=== PATIENT | male | born 1995 | race American Indian/Alaskan Native ===

== ENCOUNTER 2016-06-29 13:15 | Emergency (ER) | payer MEDICAID ==
[2016-06-29 13:37] VITALS: BP 136/78
[2016-06-29 14:00] LABS: Basophils % (Auto) 0.4 % (0.0-1.8); Eosinophils % (Auto) 4.7 % (0.0-4.3); Hematocrit 39.8 % (35.5-45.6); Hemoglobin 13.1 gm/dl (11.8-15.2); Mean Corpuscular HGB Conc 33 % (32-34); Mean Corpuscular Hemoglobin 27 pg (28-32); Mean Corpuscular Volume 83 fl (84-94); Platelet Count 214 K/mm3 (140-440); Red Blood Count 4.78 M/mm3 (3.65-5.03); White Blood Count 5.1 K/mm3 (4.5-11.0)
[2016-06-29 14:16] LABS: Anion Gap 17 mmol/L; BUN/Creatinine Ratio 5.71; Blood Urea Nitrogen 4 mg/dL (9-20); Calcium 9.1 mg/dL (8.4-10.2); Carbon Dioxide 28 mmol/L (22-30); Chloride 101.1 mmol/L (98-107); Glucose 111 mg/dL (75-100); Potassium 3.6 mmol/L (3.6-5.0); Sodium 142 mmol/L (137-145)
[2016-06-29 15:55] LABS: Urine Drugs of Abuse Note Disclamer
[2016-06-29 16:05] LABS: Bilirubin,Urine NEG (Negative); Blood,Urine NEG (Negative); Ketones,Urine NEG (Negative); Leukocyte Esterase,Urine NEG (Negative); Nitrite,Urine NEG (Negative); Protein,Urine <15 mg/dL mg/dL (Negative); Urobilinogen,Urine < 2.0 mg/dL (<2.0); WBC,Urine < 1.0 /HPF (0.0-6.0)
--- NOTE | 2016-06-29 19:40 | Emergency Department Report ---
HPI - General Chief Complaint: Psych Time Seen by Provider: 06/29/16 15:26 - HPI HPI: Chief complaint: Explosive behavior HPI: Patient is a 21-year-old male with a history of ADHD, moderate intellectual disabilities, intermittent explosive disorder, unspecified psychosis and unspecified episodic mood disorder who had an explosive outburst today. Patient was throwing things but did not assault anyone. Patient has had these type of behavior in the past but is currently calm and cooperative. Patient has been seeing a psychiatrist and also has a history of seizure disorder. Patient is currently not homicidal or suicidal and very cooperative. Mode of arrival: [private car] Source: [Patient] and [family member] Began: Occurred prior to admission Duration: Intermittent Context: See above Quality: No pain Severity: 0 out of 10 Improved with: Nothing Worsened with: Nothing Associated signs and symptoms: Unable to assess further ED Past Medical Hx - Past Medical History Hx Seizures: Yes Hx Psychiatric Treatment: Yes (Sees Dr Alanis does not know diagnosis) Additional medical history: ADHD / MODERATE INTELLECTUAL DISABILITIES/ INTERMITTENT EXPLOSIVE DISORDER/ UNSPECIFIED PSYCHOSIS / UNSPECIFIED EPISODIC MOOD DISORDER - Surgical History Past Surgical History?: No Additional Surgical History: vagus nerve stimulator (has been taken out) - Social History Smoking Status: Never Smoker Substance Use Type: None - Medications Home Medications: Home Medications Medication Instructions Recorded Confirmed Last Taken Type Phenytoin [Dilantin] 100 mg PO HS 06/25/14 06/29/16 06/24/14 History Phenytoin [Dilantin] 200 mg PO DAILY 06/25/14 06/29/16 06/25/14 History lamoTRIgine [LaMICtal] 50 mg PO 4XD 06/25/14 06/29/16 06/25/14 History Chlorpromazine HCl [chlorproMAZINE] 100 mg PO TID 06/29/16 06/29/16 Unknown History Clonidine HCl [Kapvay] 0.1 mg PO BID 06/29/16 06/29/16 Unknown History clonazePAM [ Klonopin] 0.5 mg PO BID PRN 06/29/16 06/29/16 Unknown History ED Review of Systems ROS: Stated complaint: MH EVAL Other details as noted in HPI Comment: Unobtainable due to pts medical conditions (developmentally delayed) Physical Exam - Physical Exam Vital Signs: Vital Signs 06/29/16 06/29/16 13:32 17:07 Temperature 98.4 F Pulse Rate 107 H Respiratory 20 24 Rate Blood Pressure 136/78 O2 Sat by Pulse 100 95 Oximetry Physical Exam: GENERAL: The patient is well-developed well-nourished . HEENT: Normocephalic. Atraumatic. Extraocular motions are intact. Patient has moist mucous membranes. NECK: Supple. No meningitic signs are noted. There is no adenopathy noted. CHEST/LUNGS: Clear to auscultation. There is no respiratory distress noted. HEART/CARDIOVASCULAR: Regular. There is no tachycardia. There is no gallop rub or murmur. ABDOMEN: Abdomen is soft, nontender. Patient has normal bowel sounds. There is no abdominal distention. SKIN: There is no rash. There is no edema. There is no diaphoresis. NEURO: The patient is awake, alert, The patient is cooperative. The patient has no focal neurologic deficits. MUSCULOSKELETAL: There is no tenderness or deformity. There is no limitation range of motion. There is no evidence of acute injury. ED Course Vital Signs 06/29/16 06/29/16 13:32 17:07 Temperature 98.4 F Pulse Rate 107 H Respiratory 20 24 Rate Blood Pressure 136/78 O2 Sat by Pulse 100 95 Oximetry - Reevaluation(s) Reevaluation #1: 06/29/16 19:43 Patient evaluated by mental health brewery worker who will recommend outpatient follow-up as well as in-home follow-up for education. ED Medical Decision Making - Lab Data Result diagrams: 06/29/16 13:46 06/29/16 13:46 Laboratory Tests 06/29/16 06/29/16 13:46 15:59 Phenytoin 16.3 Plasma/Serum Alcohol < 0.01 UDS negative Critical care attestation.: If time is entered above; I have spent that time in minutes in the direct care of this critically ill patient, excluding procedure time. ED Disposition Clinical Impression: Behavior disturbance, Mood disorder Disposition: DISCHARGED TO HOME OR SELFCARE Is pt being admited?: No Does the pt Need Aspirin: No Condition: Stable Additional Instructions: Follow-up with resources given to by the mental health brewery worker lex. Time of Disposition: 19:35
== END 2016-06-29 19:40 | disposition home or self-care (01) ==
LOC: ED 13:15 → EEVIPCON 13:15 → ED 19:40
DX: F91.8 Other conduct disorders (principal); F39 Unspecified mood [affective] disorder; R56.9 Unspecified convulsions; F90.9 Attention-deficit hyperactivity disorder, unspecified type; F29 Unspecified psychosis not due to a substance or known physiological condition
CPT/HCPCS: 36415; 80048; 80185; 81001; 85025; 99284; G0479; G0480; 80307; 80320

== ENCOUNTER 2016-07-10 22:55 | Emergency (ER) | payer MEDICAID ==
--- NOTE | 2016-07-10 23:36 | Emergency Department Report ---
ED Psych HPI - General Chief Complaint: Psych Stated Complaint: MH EVAL Time Seen by Provider: 07/10/16 23:24 Source: patient, police Mode of arrival: Ambulatory Limitations: No Limitations - History of Present Illness Initial Comments: 21-year-old male presents to the emergency department via EMS from mental health evaluation. Per report, the patient became agitated and began destroying property at his home. Patient has a history of similar patient denies suicidal or homicidal ideation. He denies visual or auditory hallucinations. There are no other complaints. -: Sudden, This evening Associated Psychiatric Symptoms: none History of same: Yes Quality: resolved prior to arrival Improves With: none Worsens With: none Associated Symptoms: denies other symptoms - Related Data Home Medications Medication Instructions Recorded Confirmed Last Taken Phenytoin [Dilantin] 100 mg PO HS 06/25/14 06/29/16 06/24/14 Phenytoin [Dilantin] 200 mg PO DAILY 06/25/14 06/29/16 06/25/14 lamoTRIgine [LaMICtal] 50 mg PO 4XD 06/25/14 06/29/16 06/25/14 Chlorpromazine HCl [chlorproMAZINE] 100 mg PO TID 06/29/16 06/29/16 Unknown Clonidine HCl [Kapvay] 0.1 mg PO BID 06/29/16 06/29/16 Unknown clonazePAM [ Klonopin] 0.5 mg PO BID PRN 06/29/16 06/29/16 Unknown Allergies Allergy/AdvReac Type Severity Reaction Status Date / Time No Known Allergies Allergy Verified 06/13/16 15:51 ED Review of Systems ROS: Stated complaint: MH EVAL Other details as noted in HPI Comment: All other systems reviewed and negative Psychiatric: as per HPI. denies: auditory hallucinations, visual hallucinations , homicidal thoughts, suicidal thoughts ED Past Medical Hx - Past Medical History Previous Medical History?: Yes Hx Seizures: Yes Hx Psychiatric Treatment: Yes Additional medical history: ADHD / MODERATE INTELLECTUAL DISABILITIES/ INTERMITTENT EXPLOSIVE DISORDER/ UNSPECIFIED PSYCHOSIS / UNSPECIFIED EPISODIC MOOD DISORDER - Surgical History Past Surgical History?: Yes Additional Surgical History: vagus nerve stimulator (has been taken out) - Family History Family history: no significant - Social History Smoking Status: Current Every Day Smoker Substance Use Type: Alcohol - Medications Home Medications: Home Medications Medication Instructions Recorded Confirmed Last Taken Type Phenytoin [Dilantin] 100 mg PO HS 06/25/14 06/29/16 06/24/14 History Phenytoin [Dilantin] 200 mg PO DAILY 06/25/14 06/29/16 06/25/14 History lamoTRIgine [LaMICtal] 50 mg PO 4XD 06/25/14 06/29/16 06/25/14 History Chlorpromazine HCl [chlorproMAZINE] 100 mg PO TID 06/29/16 06/29/16 Unknown History Clonidine HCl [Kapvay] 0.1 mg PO BID 06/29/16 06/29/16 Unknown History clonazePAM [ Klonopin] 0.5 mg PO BID PRN 06/29/16 06/29/16 Unknown History ED Physical Exam - General Limitations: No Limitations General appearance: alert, in no apparent distress - Head Head exam: Present: atraumatic, normocephalic - Eye Eye exam: Present: normal appearance, PERRL, EOMI - ENT ENT exam: Present: normal exam, normal orophraynx, mucous membranes moist - Neck Neck exam: Present: normal inspection, full ROM. Absent: tenderness - Respiratory Respiratory exam: Present: normal lung sounds bilaterally. Absent: respiratory distress - Cardiovascular Cardiovascular Exam: Present: regular rate, normal rhythm, normal heart sounds - GI/Abdominal GI/Abdominal exam: Present: soft, normal bowel sounds. Absent: distended, tenderness - Extremities Exam Extremities exam: Present: normal inspection, full ROM. Absent: tenderness - Back Exam Back exam: Present: normal inspection, full ROM. Absent: tenderness - Neurological Exam Neurological exam: Present: alert, oriented X3. Absent: motor sensory deficit - Psychiatric Psychiatric exam: Present: normal affect, normal mood. Absent: homicidal ideation, suicidal ideation - Skin Skin exam: Present: warm, dry, intact ED Course Vital Signs 07/10/16 23:17 Temperature 98.2 F Pulse Rate 105 H Respiratory 20 Rate Blood Pressure 130/87 O2 Sat by Pulse 99 Oximetry - Reevaluation(s) Reevaluation #1: 07/11/16 01:46 Lab results reviewed. Patient has been medically cleared. Form 1013 has been signed and placed on the chart. Patient has been evaluated by mental health and he is currently awaiting placement. ED Medical Decision Making - Lab Data Result diagrams: 07/10/16 23:39 07/10/16 23:39 - Differential Diagnosis mood disorder, behavior disorder, acute psychosis Critical care attestation.: If time is entered above; I have spent that time in minutes in the direct care of this critically ill patient, excluding procedure time. ED Disposition Clinical Impression: Mood disorder, Acute psychosis Disposition: DC/TX PSY HOSP/PSY UNIT Is pt being admited?: No Condition: Stable Time of Disposition: 01:47
[2016-07-11 00:03] LABS: Basophils % (Auto) 0.3 % (0.0-1.8); Eosinophils % (Auto) 8.1 % (0.0-4.3); Hematocrit 36.5 % (35.5-45.6); Hemoglobin 12.4 gm/dl (11.8-15.2); Mean Corpuscular HGB Conc 34 % (32-34); Mean Corpuscular Hemoglobin 28 pg (28-32); Mean Corpuscular Volume 84 fl (84-94); Platelet Count 241 K/mm3 (140-440); Red Blood Count 4.37 M/mm3 (3.65-5.03); Red Cell Distribution Width 15.3 % (13.2-15.2); White Blood Count 6.7 K/mm3 (4.5-11.0)
[2016-07-11 00:09] LABS: BUN/Creatinine Ratio 4.28; Blood Urea Nitrogen 3 mg/dL (9-20); Carbon Dioxide 29 mmol/L (22-30); Chloride 103.2 mmol/L (98-107); Glucose 97 mg/dL (75-100); Potassium 3.2 mmol/L (3.6-5.0); Sodium 144 mmol/L (137-145)
[2016-07-11 00:17] LABS: Anion Gap 15 mmol/L
[2016-07-11 01:11] LABS: Urine Drugs of Abuse Note Disclamer
[2016-07-11 01:24] LABS: Bilirubin,Urine NEG (Negative); Blood,Urine NEG (Negative); Ketones,Urine NEG (Negative); Leukocyte Esterase,Urine NEG (Negative); Nitrite,Urine NEG (Negative); Protein,Urine <15 mg/dL mg/dL (Negative); Urobilinogen,Urine < 2.0 mg/dL (<2.0)
[2016-07-11] MEDS ORDERED: NACL 0.9% 500 ML IR ONE ×2 (03:25→03:27)
[2016-07-11] MEDS ORDERED: THERMAZENE 50 GRAM TP ONE (03:26)
[2016-07-11] MEDS ORDERED: XANAX PO ONE (13:08)
[2016-07-11 19:37] VITALS: BP 136/82
== END 2016-07-11 19:40 | disposition home or self-care (01) ==
LOC: ED 22:55 → EEVIPCON 22:55 → ED 07-11 19:40
DX: F39 Unspecified mood [affective] disorder (principal); F17.200 Nicotine dependence, unspecified, uncomplicated
CPT/HCPCS: 36415; 80048; 80307; 81001; 85025; 99285; G0480; 80320; 99284

== ENCOUNTER 2016-11-14 16:10 | Emergency (ER) | payer MEDICAID ==
[2016-11-14 17:46] LABS: Basophils % (Auto) 0.6 % (0.0-1.8); Hematocrit 41.1 % (35.5-45.6); Hemoglobin 13.6 gm/dl (11.8-15.2); Mean Corpuscular HGB Conc 33 % (32-34); Mean Corpuscular Hemoglobin 29 pg (28-32); Mean Corpuscular Volume 86 fl (84-94); Platelet Count 241 K/mm3 (140-440); Red Blood Count 4.77 M/mm3 (3.65-5.03); Red Cell Distribution Width 14.9 % (13.2-15.2); White Blood Count 8.2 K/mm3 (4.5-11.0)
[2016-11-14 17:58] LABS: Anion Gap 16 mmol/L; Blood Urea Nitrogen 6 mg/dL (9-20); Calcium 9.2 mg/dL (8.4-10.2); Carbon Dioxide 29 mmol/L (22-30); Chloride 99.9 mmol/L (98-107); Glucose 70 mg/dL (75-100); Potassium 4.4 mmol/L (3.6-5.0); Sodium 140 mmol/L (137-145)
[2016-11-14] MEDS ORDERED: ATIVAN IM PRN (19:51)
--- NOTE | 2016-11-14 19:52 | Emergency Department Report ---
ED General Adult HPI - General Chief complaint: Psych Stated complaint: MH EVAL Time Seen by Provider: 11/14/16 19:40 Source: patient, RN notes reviewed, old records reviewed Mode of arrival: Ambulatory Limitations: Other (patient is a poor historian) - History of Present Illness Initial comments: This is a 21-year-old male. He has a past history of bipolar, schizophrenia, ADHD, retardation, intermittent explosive disorder, unspecified psychosis, unspecified episodic mood disorder. The patient is brought to the hospital for aggressive behavior. No family is available at this point time for clarification. As per triage documentation "mom states he has been acting out this afternoon... Throwing things; poured grease on floor, etc. Mother states spitting on nephew; throwing things at people "Had to call police out to the house 2 this afternoon." Patient has no recollection of this event. He denies headache, neck pain, chest pain, abdominal pain, shortness of breath, irritative and obstructive urinary symptoms. The patient cannot describe exacerbating or relieving factors. -: Gradual Quality: other (per hpi) Consistency: other (per hpi) Improves with: other (per hpi) Worsens with: other (per hpi) Associated Symptoms: denies: chest pain, shortness of breath, syncope, weakness - Related Data Home Medications Medication Instructions Recorded Confirmed Last Taken Phenytoin [Dilantin] 100 mg PO HS 06/25/14 11/14/16 11/14/16 Phenytoin [Dilantin] 200 mg PO DAILY 06/25/14 11/14/16 11/14/16 lamoTRIgine [LaMICtal] 50 mg PO 4XD 06/25/14 11/14/16 11/14/16 Chlorpromazine HCl [chlorproMAZINE] 100 mg PO TID 06/29/16 11/14/16 11/14/16 clonazePAM [ Klonopin] 0.5 mg PO BID PRN 06/29/16 11/14/16 11/14/16 Divalproex [Emma BINGHAM] 250 mg PO QHS 11/14/16 11/14/16 11/13/16 risperiDONE [RisperDAL] 2 mg PO QHS 11/14/16 11/14/16 11/13/16 Allergies Allergy/AdvReac Type Severity Reaction Status Date / Time No Known Allergies Allergy Verified 11/14/16 17:19 ED Review of Systems ROS: Stated complaint: MH EVAL Other details as noted in HPI Constitutional: see HPI Eyes: as per HPI ENT: as per HPI Respiratory: see HPI Cardiovascular: as per HPI Endocrine: see HPI Gastrointestinal: as per HPI Genitourinary: as per HPI Musculoskeletal: as per HPI Skin: as per HPI Neurological: as per HPI Psychiatric: as per HPI. denies: homicidal thoughts, suicidal thoughts Hematological/Lymphatic: as per HPI ED Past Medical Hx - Past Medical History Hx Seizures: Yes Hx Psychiatric Treatment: Yes (Bipolar, Schizophrenia) Additional medical history: ADHD / MODERATE retardation/ INTERMITTENT EXPLOSIVE DISORDER/ UNSPECIFIED PSYCHOSIS / UNSPECIFIED EPISODIC MOOD DISORDER - Surgical History Additional Surgical History: vagus nerve stimulator (has been taken out) - Social History Smoking Status: Never Smoker Substance Use Type: None - Medications Home Medications: Home Medications Medication Instructions Recorded Confirmed Last Taken Type Phenytoin [Dilantin] 100 mg PO HS 06/25/14 11/14/16 11/14/16 History Phenytoin [Dilantin] 200 mg PO DAILY 06/25/14 11/14/16 11/14/16 History lamoTRIgine [LaMICtal] 50 mg PO 4XD 06/25/14 11/14/16 11/14/16 History Chlorpromazine HCl [chlorproMAZINE] 100 mg PO TID 06/29/16 11/14/16 11/14/16 History clonazePAM [ Klonopin] 0.5 mg PO BID PRN 06/29/16 11/14/16 11/14/[address] [DepaKOTE DR] 250 mg PO QHS 11/14/16 11/14/16 11/13/16 History risperiDONE [RisperDAL] 2 mg PO QHS 11/14/16 11/14/16 11/13/16 History ED Physical Exam - General Limitations: Other (the patient is a poor historian, and is very disorganized.) General appearance: alert, in no apparent distress - Head Head exam: Present: atraumatic, normocephalic - Eye Eye exam: Present: normal appearance, EOMI - ENT ENT exam: Present: normal exam, normal orophraynx, mucous membranes moist, normal external ear exam - Neck Neck exam: Present: normal inspection, full ROM. Absent: tenderness, meningismus - Respiratory Respiratory exam: Present: normal lung sounds bilaterally. Absent: respiratory distress, wheezes, rales, rhonchi, stridor, chest wall tenderness, accessory muscle use, decreased breath sounds, prolonged expiratory - Cardiovascular Cardiovascular Exam: Present: regular rate, normal rhythm, normal heart sounds. Absent: bradycardia, tachycardia, irregular rhythm, systolic murmur, diastolic murmur, rubs, gallop - GI/Abdominal GI/Abdominal exam: Present: soft, normal bowel sounds. Absent: distended, tenderness, guarding, rebound, rigid, hyperactive bowel sounds, hypoactive bowel sounds, organomegaly, mass, bruit, pulsatile mass - Rectal Rectal exam: Present: deferred - Extremities Exam Extremities exam: Present: normal inspection, full ROM, normal capillary refill. Absent: tenderness, pedal edema, joint swelling, calf tenderness - Back Exam Back exam: Present: normal inspection, full ROM. Absent: tenderness, CVA tenderness (R), CVA tenderness (L), muscle spasm, paraspinal tenderness, vertebral tenderness - Neurological Exam Neurological exam: Present: alert (patient is alert to name, month, location), oriented X3, other (Extraocular movements intact. Tongue midline. No facial droop. Facial sensation intact to light touch in the V1, V2, V3 distribution bilaterally. 5 and 5 strength in 4 extremities.. Sensation is intact to light touch in 4 extremities.). Absent: motor sensory deficit - Psychiatric Psychiatric exam: Present: flat affect - Skin Skin exam: Present: warm, dry, intact, normal color. Absent: rash ED Course Vital Signs 11/14/16 11/14/16 11/14/16 17:20 19:32 20:10 Temperature 98.1 F 97.8 F Pulse Rate 94 H 96 H Respiratory 18 18 18 Rate Blood Pressure 125/83 Blood Pressure 126/77 [Right] O2 Sat by Pulse 98 97 Oximetry 11/15/16 11/15/16 11/15/16 12:21 12:22 22:00 Temperature 97.5 F L 98.2 F Pulse Rate 87 97 H Respiratory 18 16 18 Rate Blood Pressure Blood Pressure 132/75 125/96 [Right] O2 Sat by Pulse 97 98 98 Oximetry - Reevaluation(s) Reevaluation #1: 05/25/17 20:14 Differential diagnosis: Mood disorder, medical clearance for psychiatric placement, unspecified psychosis Assessment and plan: 21-year-old male with multiple psychiatric issues, appears somewhat disorganized, somewhat hyperactive, not actively homicidal or suicidal. No family is available for collateral at this time. Given disorganized behavior, documentation of the aggressive, patient is placed on a 1013 and is pending psychiatric consult. However, if the psychiatry team is able to obtain collateral information and feels that the patient does not require 1013, I think sending the patient back would be a reasonable plan of care. ED Medical Decision Making - Lab Data Result diagrams: 11/14/16 17:29 11/14/16 17:29 Vital Signs 11/14/16 11/14/16 11/14/16 17:20 19:32 20:10 Temperature 98.1 F 97.8 F Pulse Rate 94 H 96 H Respiratory 18 18 18 Rate Blood Pressure 125/83 Blood Pressure 126/77 [Right] O2 Sat by Pulse 98 97 Oximetry Lab Results 11/14/16 11/14/16 11/14/16 Range/Units 17:29 17:29 17:29 WBC 8.2 (4.5-11.0) K/mm3 RBC 4.77 (3.65-5.03) M/mm3 Hgb 13.6 (11.8-15.2) gm/dl Hct 41.1 (35.5-45.6) % MCV 86 (84-94) fl MCH 29 (28-32) pg MCHC 33 (32-34) % RDW 14.9 (13.2-15.2) % Plt Count 241 (140-440) K/mm3 Lymph % (Auto) 28.8 (13.4-35.0) % [place] % (Auto) 7.5 H (0.0-7.3) % Eos % (Auto) 8.0 H (0.0-4.3) % Baso % (Auto) 0.6 (0.0-1.8) % Lymph # 2.4 (1.2-5.4) K/mm3 [place] # 0.6 (0.0-0.8) K/mm3 Eos # 0.7 H (0.0-0.4) K/mm3 Baso # 0.0 (0.0-0.1) K/mm3 Seg Neutrophils % 55.1 (40.0-70.0) % Seg Neutrophils # 4.5 (1.8-7.7) K/mm3 Sodium 140 (137-145) mmol/L Potassium 4.4 (3.6-5.0) mmol/L Chloride 99.9 (98-107) mmol/L Carbon Dioxide 29 (22-30) mmol/L Anion Gap 16 mmol/L BUN 6 L (9-20) mg/dL Creatinine 0.8 (0.8-1.5) mg/dL Estimated GFR > 60 ml/min BUN/Creatinine Ratio 7.50 % Glucose 70 L (75-100) mg/dL Calcium 9.2 (8.4-10.2) mg/dL Total Creatine Kinase (55-170) units/L Salicylates (2.8-20.0) mg/dL Acetaminophen (10.0-30.0) ug/mL Phenytoin (10.0-20.0) mg/L Plasma/Serum Alcohol < 0.01 (0-0.07) gm% 11/14/16 11/14/16 11/14/16 Range/Units 17:29 17:29 17:29 WBC (4.5-11.0) K/mm3 RBC (3.65-5.03) M/mm3 Hgb (11.8-15.2) gm/dl Hct (35.5-45.6) % MCV (84-94) fl MCH (28-32) pg MCHC (32-34) % RDW (13.2-15.2) % Plt Count (140-440) K/mm3 Lymph % (Auto) (13.4-35.0) % [place] % (Auto) (0.0-7.3) % Eos % (Auto) (0.0-4.3) % Baso % (Auto) (0.0-1.8) % Lymph # (1.2-5.4) K/mm3 [place] # (0.0-0.8) K/mm3 Eos # (0.0-0.4) K/mm3 Baso # (0.0-0.1) K/mm3 Seg Neutrophils % (40.0-70.0) % Seg Neutrophils # (1.8-7.7) K/mm3 Sodium (137-145) mmol/L Potassium (3.6-5.0) mmol/L Chloride (98-107) mmol/L Carbon Dioxide (22-30) mmol/L Anion Gap mmol/L BUN (9-20) mg/dL Creatinine (0.8-1.5) mg/dL Estimated GFR ml/min BUN/Creatinine Ratio % Glucose (75-100) mg/dL Calcium (8.4-10.2) mg/dL Total Creatine Kinase 558 H (55-170) units/L Salicylates < 0.3 L (2.8-20.0) mg/dL Acetaminophen < 15.0 (10.0-30.0) ug/mL Phenytoin 7.7 L (10.0-20.0) mg/L Plasma/Serum Alcohol (0-0.07) gm% Critical care attestation.: If time is entered above; I have spent that time in minutes in the direct care of this critically ill patient, excluding procedure time. ED Disposition Clinical Impression: Mood disorder Disposition: DISCHARGED TO HOME OR SELFCARE Is pt being admited?: No Does the pt Need Aspirin: No Condition: Good Instructions: Mood Disorders (ED) Referrals: PRIMARY CARE, [Primary Care Provider] - 3-5 Days
[2016-11-14 20:11] LABS: Salicylate < 0.3 mg/dL (2.8-20.0)
[2016-11-14 22:39] LABS: Urine Drugs of Abuse Note Disclamer
[2016-11-14 23:04] LABS: Bilirubin,Urine NEG (Negative); Blood,Urine SM (Negative); Ketones,Urine NEG (Negative); Leukocyte Esterase,Urine NEG (Negative); Mucus,Urine FEW /HPF; Nitrite,Urine NEG (Negative); Protein,Urine <15 mg/dL mg/dL (Negative)
[2016-11-15] MEDS ORDERED: CHLORPROMAZINE HCL 100 MG PO SCH (08:00)
--- NOTE | 2016-11-15 10:56 | Consultation ---
History of Present Illness - Reason for Consult Consult date: 11/15/16 Reason for consult: Mental Health Evaluation Requesting physician: JACEK HOGAN - Chief Complaint Chief complaint: "I want to go back home with my mom" - History of Present Psychiatric Illness This is a 21-year-old male. He has a past history of bipolar, schizophrenia, ADHD, retardation, intermittent explosive disorder, unspecified psychosis, and unspecified episodic mood disorder. Today patient is calm, but need to be redirected during our conversation. He would state,"I want to go back home with my mom." He could not tell me what happened at home or why he was brought to [facility]. Per the ER note, patient had behavioral/impulsiveness issues at home and the police was called. No gestures of SI/HI's. Medications and Allergies Allergies Allergy/AdvReac Type Severity Reaction Status Date / Time No Known Allergies Allergy Verified 11/14/16 17:19 Home Medications Medication Instructions Recorded Confirmed Last Taken Type Phenytoin [Dilantin] 100 mg PO HS 06/25/14 11/14/16 11/14/16 History Phenytoin [Dilantin] 200 mg PO DAILY 06/25/14 11/14/16 11/14/16 History lamoTRIgine [LaMICtal] 50 mg PO 4XD 06/25/14 11/14/16 11/14/16 History Chlorpromazine HCl [chlorproMAZINE] 100 mg PO TID 06/29/16 11/14/16 11/14/16 History clonazePAM [ Klonopin] 0.5 mg PO BID PRN 06/29/16 11/14/16 11/14/[address] [Domingo ROJO] 250 mg PO QHS 11/14/16 11/14/16 11/13/16 History risperiDONE [RisperDAL] 2 mg PO QHS 11/14/16 11/14/16 11/13/16 History Active Meds: Active Medications Chlorpromazine HCl (Thorazine) 100 mg PO TID KEVIN Clonazepam (Klonopin) 0.5 mg PO BID PRN PRN Reason: Anxiety Divalproex Sodium (Domingo Rojo) 250 mg PO QHS KEVIN Lorazepam (Ativan) 2 mg IM Q4HR PRN PRN Reason: Agitation Phenytoin (Dilantin) 100 mg PO HS KEVIN Risperidone (Risperdal) 2 mg PO QHS KEVIN Past psychiatric history - Past Medical History Past Medical History: seizures Past Surgical History: Other (vagus nerve stimulator has been removed) - Social History Social history: lives with family Mental Status Exam - Vital signs Last Vital Signs Temp 97.8 F 11/14/16 20:10 Pulse 96 H 11/14/16 20:10 Resp 18 11/14/16 20:10 BP 126/77 11/14/16 20:10 Pulse Ox 97 11/14/16 20:10 - Exam Narrative exam: ROS (+) disorganized MSE: Appearance: cooperative, calm Behavior: poor eye contact Speech: loud rate and tone Mood: "I am okay" Affect: euthymic Thought Process: tangential Thought Content: denies SI/HI's and AVH's Motor Activity: ambulatory Cognition: a/ox 2 Insight: limited Judgment: limited Results Result Diagrams: 11/14/16 17:29 11/14/16 17:29 Abnormal lab results 11/14/16 11/14/16 11/14/16 Range/Units 17:29 17:29 17:29 [place] % (Auto) 7.5 H (0.0-7.3) % Eos % (Auto) 8.0 H (0.0-4.3) % Eos # 0.7 H (0.0-0.4) K/mm3 BUN 6 L (9-20) mg/dL Glucose 70 L (75-100) mg/dL Total Creatine Kinase 558 H (55-170) units/L Salicylates (2.8-20.0) mg/dL Phenytoin (10.0-20.0) mg/L Valproic Acid (50-100) ug/mL 11/14/16 11/14/16 Range/Units 17:29 17:29 [place] % (Auto) (0.0-7.3) % Eos % (Auto) (0.0-4.3) % Eos # (0.0-0.4) K/mm3 BUN (9-20) mg/dL Glucose (75-100) mg/dL Total Creatine Kinase (55-170) units/L Salicylates < 0.3 L (2.8-20.0) mg/dL Phenytoin 7.7 L (10.0-20.0) mg/L Valproic Acid 39.2 L (50-100) ug/mL All other labs normal. Assessment and Plan Assessment and plan: Impression: Acute Stress DO. This is a 21-year-old male. He has a past history of bipolar, schizophrenia, ADHD, retardation, intermittent explosive disorder, unspecified psychosis, and unspecified episodic mood disorder. Today patient is calm, but need to be redirected during our conversation. He would state,"I want to go back home with my mom." I he could not tell me what happened at home or why was he brought to [facility]. No gestures of SI/HI's or AVH's. DD: R/O Bipolar, Unspecified Mood DO Recommendation/Plan: Rescind 1013. Patient can return home with mother and follow-up outpatient with his psychiatrist or therapist..
[2016-11-15] MEDS: THORAZINE PO SCH ×3 (11:56→21:45)
--- NOTE | 2016-11-15 21:50 | Emergency Department Report ---
Blank Doc - Documentation Documentation: Patient has been evaluated by mental health. Respirations are to rescind the 1013. Patient will be discharged home to follow up with his outpatient psychiatrist.
[2016-11-15] MEDS ORDERED: NON-FORMULARY (Risperidone [Risperdal] 2 MG) PO SCH (22:00)
[2016-11-15] MEDS ORDERED: RisperDAL PO SCH (22:00)
[2016-11-15] MEDS ORDERED: DILANTIN PO SCH (22:00)
[2016-11-16 02:13] VITALS: BP 125/96
== END 2016-11-15 22:00 | disposition home or self-care (01) ==
LOC: EEVIPCON 16:10 → ED 16:10
DX: F39 Unspecified mood [affective] disorder (principal); F20.9 Schizophrenia, unspecified; F31.9 Bipolar disorder, unspecified
CPT/HCPCS: 36415; 80048; 80164; 80185; 80307; 81001; 82550; 82962; 85025; 99285; G0480; 80320; Q0161

== ENCOUNTER 2016-11-20 21:17 | Emergency (ER) | payer MEDICAID ==
[2016-11-20 23:18] LABS: Basophils % (Auto) 0.4 % (0.0-1.8); Eosinophils % (Auto) 7.9 % (0.0-4.3); Hematocrit 39.5 % (35.5-45.6); Hemoglobin 13.1 gm/dl (11.8-15.2); Mean Corpuscular HGB Conc 33 % (32-34); Mean Corpuscular Hemoglobin 29 pg (28-32); Mean Corpuscular Volume 86 fl (84-94); Platelet Count 212 K/mm3 (140-440); Red Cell Distribution Width 14.9 % (13.2-15.2)
[2016-11-20 23:18] LABS: Urine Drugs of Abuse Note Disclamer
[2016-11-20 23:32] LABS: Anion Gap 18 mmol/L; BUN/Creatinine Ratio 14.28; Blood Urea Nitrogen 10 mg/dL (9-20); Calcium 8.7 mg/dL (8.4-10.2); Carbon Dioxide 24 mmol/L (22-30); Chloride 99.8 mmol/L (98-107); Glucose 112 mg/dL (75-100); Potassium 3.5 mmol/L (3.6-5.0); Sodium 138 mmol/L (137-145)
[2016-11-20 23:38] LABS: Bilirubin,Urine NEG (Negative); Blood,Urine NEG (Negative); Ketones,Urine NEG (Negative); Leukocyte Esterase,Urine NEG (Negative); Mucus,Urine FEW /HPF; Nitrite,Urine NEG (Negative); Protein,Urine <15 mg/dL mg/dL (Negative); Urobilinogen,Urine < 2.0 mg/dL (<2.0)
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
[2016-11-21 09:35] VITALS: BP 104/59
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
[2016-11-21] MEDS ORDERED: DILANTIN PO SCH (22:00)
[2016-11-21] MEDS ORDERED: RisperDAL PO SCH (22:00)
[2016-11-21] MEDS ORDERED: NON-FORMULARY (Risperidone [Risperdal] 2 MG) PO SCH (22:00)
[2016-11-22] MEDS ORDERED: DILANTIN PO SCH (10:00)
== END 2016-11-21 20:15 | disposition home or self-care (01) ==
LOC: EEVIPCON 21:17 → ED 21:17
DX: F39 Unspecified mood [affective] disorder (principal); R46.89 Other symptoms and signs involving appearance and behavior; F31.9 Bipolar disorder, unspecified; F20.9 Schizophrenia, unspecified
CPT/HCPCS: 36415; 80048; 80307; 81001; 85025; 99284; G0480; 80320